=== PATIENT | male | born 1960 | race Caucasian/White ===

== ENCOUNTER 2019-07-23 08:45 | Outpatient (CLI) | payer MEDICAID ==
[2019-07-23 12:27] LABS: BASOPHILS # (AUTO) 0.1 10^3/uL (0.0-0.1); BASOPHILS % (AUTO) 0.8 %; EOSINOPHILS # (AUTO) 0.2 10^3/uL (0.0-0.7); EOSINOPHILS % (AUTO) 2.4 %; HGB - HEMOGLOBIN 15.6 g/dL (14.0-18.0); LYMPHOCYTES # (AUTO) 2.3 10^3/uL (1.5-3.5); LYMPHOCYTES % (AUTO) 23.2 %; MEAN CORPUSCULAR HEMOGLOBIN 30.4 pg (27.0-31.0); MEAN CORPUSCULAR HGB CONC 32.6 g/dL (32.0-36.0); MEAN CORPUSCULAR VOLUME 93.4 fL (80.0-94.0); MEAN PLATELET VOLUME 10.1 fL (7.4-11.4); MONOCYTES # (AUTO) 0.8 10^3/uL (0.0-1.0); MONOCYTES % (AUTO) 8.5 %; NEUTROPHILS # (AUTO) 6.3 10^3/uL (1.5-6.6); NEUTROPHILS % (AUTO) 64.2 %; PLT - PLATELET COUNT 267 10^3/uL (130-450); RED BLOOD COUNT 5.13 10^6/uL (4.70-6.10); RED CELL DISTRIBUTION WIDTH 13.5 % (12.0-15.0); WHITE BLOOD COUNT 9.8 x10^3/uL (4.8-10.8)
[2019-07-23 12:49] LABS: HB2 TOTAL 16.2 g/dL; HEMOGLOBIN A1C 0.64 g/dL; HEMOGLOBIN A1C % 5.8 % (4.6-6.2)
[2019-07-23 12:57] LABS: ALBUMIN 3.8 g/dL (3.2-5.5); ALBUMIN/GLOBULIN RATIO 1.2 (1.0-2.2); ALKALINE PHOSPHATASE 54 IU/L (42-121); ALT ALANINE AMINOTRANSFERASE 46 IU/L (10-60); AST ASPARTATE AMINOTRANSFERASE 20 IU/L (10-42); BILIRUBIN,TOTAL 0.7 mg/dL (0.2-1.0); BUN - BLOOD UREA NITROGEN 21 mg/dL (6-20); CARBON DIOXIDE - CO2 26 mmol/L (21-32); CHLORIDE 105 mmol/L (101-111); CHOL/HDL RATIO 6.3 (<5.0); CHOLESTEROL 232 mg/dL; GFR - MDRD 77 (>89); GLUCOSE 107 mg/dL (70-100); HDL CHOLESTEROL 37 mg/dL; LDL CHOLESTEROL,CALCULATED 124 mg/dL; LDL/HDL RATIO 3.4 (<3.6); SODIUM 140 mmol/L (135-145); TOTAL PROTEIN 7.1 g/dL (6.7-8.2); VLDL CHOLESTEROL 71 mg/dL
== END 2019-07-23 23:59 | disposition home or self-care (01) ==
LOC: LAB.N 08:45
PROVIDERS: ATTEND Physician Assistant Medical
DX: Z00.00 Encounter for general adult medical examination without abnormal findings (principal); I10 Essential (primary) hypertension; R73.9 Hyperglycemia, unspecified; E78.70 Disorder of bile acid and cholesterol metabolism, unspecified; M50.30 Other cervical disc degeneration, unspecified cervical region; F17.200 Nicotine dependence, unspecified, uncomplicated
CPT/HCPCS: 36415; 80050; 80061; 83036; 83721; 84153

== ENCOUNTER 2019-08-11 08:00 | Outpatient (CLI) | payer MEDICAID | END 2019-08-11 23:59 | disposition home or self-care (01) | LOC: LAB.R 08:00 | PROVIDERS: ATTEND Physician Assistant Medical | DX: Z01.812 Encounter for preprocedural laboratory examination (principal); K40.90 Unilateral inguinal hernia, without obstruction or gangrene, not specified as recurrent | CPT/HCPCS: 87640 ==

== ENCOUNTER 2019-08-18 09:17 | Day surgery (SDC) | payer MEDICAID ==
[~2019-08-18 09:17] MED LIST: CEFAZOLIN SODIUM IN 0.9 % NACL 0 GM/0 ML BAG IV ONE
[2019-08-18] MEDS ORDERED: BUPIVACAINE 0.5% PF 10 ML VIAL ONE (09:51)
[2019-08-18] MEDS ORDERED: LIDOCAINE 1%-EPI 1:100000 20 ML MDV ONE (09:52)
[2019-08-18] MEDS ORDERED: BUPIVACAINE 0.25% PF 30 ML VIAL ONE (09:52)
[2019-08-18] MEDS ORDERED: LACTATED RINGERS 1,000 ML IV ONE (10:00)
[2019-08-18] MEDS ORDERED: CEFAZOLIN SODIUM IN 0.9 % NACL 2 GM/100 ML BAG IV ONE (10:23)
--- NOTE | 2019-08-18 10:32 | ANESTHESIA ---
Pre-Anesthesia VS, & Labs - Diagnosis left inguinal hernia - Procedure laparoscopic left inguinal hernia repair Vital Signs: Temp Pulse Resp BP Pulse Ox 36.6 C 65 14 153/90 H 96 08/18/19 09:38 08/18/19 09:38 08/18/19 09:38 08/18/19 09:38 08/18/19 09:38 Height 6 ft Weight (kg) 110 kg - NPO >8 hours Home Medications and Allergies Home Medications: Ambulatory Orders Atorvastatin Calcium 20 mg PO QPM 08/11/19 Lisinopril [Zestril] 20 mg PO DAILY 08/11/19 Atorvastatin Calcium 20 mg PO QPM 08/11/19 Lisinopril [Zestril] 20 mg PO DAILY 08/11/19 Cardiotone 1 tab PO DAILY 08/17/19 Allergies/Adverse Reactions: Allergies Allergy/AdvReac Type Severity Reaction Status Date / Time ciprofloxacin [From Cipro] Allergy Intermediate Rash Verified 08/18/19 10:05 ciprofloxacin HCl * Allergy Intermediate Rash Verified 08/18/19 10:05 [From Cipro] sulfamethoxazole Allergy Intermediate Rash Verified 08/18/19 10:05 [From Bactrim] trimethoprim [From Bactrim] Allergy Intermediate Rash Verified 08/18/19 10:05 Anes History & Medical History - Anesthetic History Anesthesia Complications: reports: No previous complications - Medical History Cardiovascular: reports: Hypertension, High cholesterol, Deep vein thrombosis Pulmonary: reports: None Gastrointestinal: reports: Colon polyps Urinary: reports: None Musculoskeletal: reports: None Endocrine/Autoimmune: reports: None Skin: reports: None Smoking Status: Current every day smoker - Surgical History General: Colonoscopy, Other Orthopedic: Other Exam General: Alert Dental: Poor dentition (some missing) Mouth Opening: Greater than 4 Fingerbreadths Mallampati classification: II Thyromental Distance: greater than 6 cm Respiratory: Lungs clear Cardiovascular: Regular rate, Normal S1, Normal S2 Mental/Cognitive Status: Alert/Oriented X3 Plan Anesthesia Type: General Consent for Procedure(s) Verified and Reviewed: Yes Code Status: Attempt Resuscitation ASA classification: 2-Mild systemic disease Is this case an emergency?: No
[2019-08-18] MEDS ORDERED: HYDROmorphone 0.5 MG/0.5 ML SYRINGE IVP PRN (10:43)
[2019-08-18] MEDS ORDERED: ONDANSETRON 4 MG/2 ML VIAL IVP PRN (10:43)
[2019-08-18] MEDS ORDERED: oxyCODONE 5 MG TABLET PO PRN (10:43)
[2019-08-18] MEDS ORDERED: LIDOCAINE 1%-EPI 1:100000 20 ML MDV SUBQ ONE ×2 (11:21)
[2019-08-18] MEDS ORDERED: BUPIVACAINE 0.25% PF 30 ML VIAL SUBQ ONE ×2 (11:21)
--- NOTE | 2019-08-18 13:08 | OPERATIVE REPORT ---
Operative Report - General Procedure Date: 08/18/19 Pre-Op Diagnosis: Left Inguinal Hernia Procedure Performed: Laparoscopic Transabdominal Repair of Left Inguinal Hernia Post Op Diagnosis: same - Procedure Note Primary Surgeon: MD Yasmin Anesthesia Provider: Judith Garncia CRNA Anesthesia Technique: General ET tube Pathology: none Estimated Blood Loss (mL): 5 Indications: 59yo male with symptomatic left inguinal hernia. After discussion of risks, benefits, and alternatives, he had decided to proceed with laparoscopic hernia repair with mesh. Findings: indirect left inguinal hernia, cord lipoma; no right hernia Complications: none - Other Other Information/Narrative: The patient was taken to the operating room and placed on operating table in supine position. The abdomen was prepped and draped in sterile fashion and a time out is performed with the team present. Local anesthesia was used to infiltrate each port site as well as perform an ilioinguinal block. Using an 11 blade scalpel, a 12 mm supraumbilical incision was made and carried down to the fascia. The fascia was grasped and elevated and then incised. Lucrecia clamps were used to bluntly enter the abdomen. Stay sutures were placed with 0-vicryl. Pneumoperitoneum was introduced. Two secondary 5mm trocars were then placed under direct vision lateral to the bilateral rectus sheaths. Initial dissection began on the left side with an incision into the peritoneum which was carried laterally to the ASIS and medially to the pubic tubercle. The plane was developed until the hernia defect, epigastric vessels, cord structures, and pubic tubercle were exposed. The indirect defect was reduced. A large cord lipoma was encountered and also reduced. An extra-large left sided Bard contoured mesh was introduced and carefully placed to cover the defect and overlap the pubic tubercle as well as potential spaces for indirect and femoral defects. It is secured into place with tacks with attention to underlying vessel and nerve anatomy. The peritoneal flap is then closed and secured with tacks. The secondary trocars were removed under direct vision noting no bleeding. The abdomen was allowed to desufflate fully. The final trocar was removed. The midline fascia was closed using the stay sutures and the skin incisions were reapproximated using 4-0 Monocryl in an interrupted subcuticular fashion. The abdomen was cleaned and dried and Dermabond was placed over each of the incisions. The testicles were both identified in the scrotum. The patient was awakened and taken to the postanesthesia care unit in stable condition. All counts were correct at the end of the procedure.
[2019-08-18 14:29] VITALS: BP 136/84
== END 2019-08-18 09:18 | disposition home or self-care (01) ==
LOC: SDS 09:17
PROVIDERS: ATTEND Surgery
DX: K40.90 Unilateral inguinal hernia, without obstruction or gangrene, not specified as recurrent (principal); I10 Essential (primary) hypertension; E78.00 Pure hypercholesterolemia, unspecified; E66.9 Obesity, unspecified; F17.210 Nicotine dependence, cigarettes, uncomplicated; Z68.32 Body mass index [BMI] 32.0-32.9, adult; Z82.49 Family history of ischemic heart disease and other diseases of the circulatory system; Z86.718 Personal history of other venous thrombosis and embolism; Z88.1 Allergy status to other antibiotic agents; Z88.2 Allergy status to sulfonamides
CPT/HCPCS: 49650; C1781; J0690; J7120; 87081

== ENCOUNTER 2019-09-16 19:07 | Emergency (ER) | payer MEDICAID ==
[2019-09-16 19:16] VITALS: BP 171/94
--- NOTE | 2019-09-16 19:29 | ED Physician Documentation ---
History of Present Illness - Stated complaint Stated Complaint: HEAD LAC - Chief complaint Chief Complaint: Laceration - History obtained from History obtained from: Patient (Pt was hanging a cabinet and thought he got the screws in to secure the cabinet but when he let go to the cabinet fell onto his forehead. No loc. Presents w/ lac on forehead. No blood thinners.) Review of Systems Ten Systems: 10 systems reviewed and negative PD PAST MEDICAL HISTORY - Past Medical History Cardiovascular: Hypertension, High cholesterol, Deep vein thrombosis Respiratory: None Endocrine/Autoimmune: None GI: Colon polyps : None HEENT: Chronic vision loss Psych: None Musculoskeletal: None Derm: None - Past Surgical History Past Surgical History: Yes General: Colonoscopy, Other Ortho: Other - Present Medications Home Medications: Ambulatory Orders Medication Instructions Recorded Confirmed Atorvastatin Calcium 20 mg PO QPM 08/11/19 08/18/19 Lisinopril [Zestril] 20 mg PO DAILY 08/11/19 08/18/19 Cardiotone 1 tab PO DAILY 08/17/19 08/18/19 Docusate Sodium 100 mg PO BID #60 capsule 08/18/19 Ibuprofen 800 mg PO TID #60 tablet 08/18/19 oxyCODONE [Roxicodone] 5 mg PO Q6H PRN #20 tablet 08/18/19 - Allergies Allergies/Adverse Reactions: Allergies Allergy/AdvReac Type Severity Reaction Status Date / Time ciprofloxacin [From Cipro] Allergy Intermediate Rash Verified 09/16/19 19:16 ciprofloxacin HCl * Allergy Intermediate Rash Verified 09/16/19 19:16 [From Cipro] sulfamethoxazole Allergy Intermediate Rash Verified 09/16/19 19:16 [From Bactrim] trimethoprim [From Bactrim] Allergy Intermediate Rash Verified 09/16/19 19:16 - Social History Does the pt smoke?: Yes Smoking Status: Current every day smoker Does the pt drink ETOH?: Yes Does the pt have substance abuse?: Yes - Immunizations Immunizations are current?: No Immunizations: TDAP >10years/unknown - POLST Patient has POLST: No PD ED PE NORMAL - Vitals Vital signs reviewed: Yes - General General: Alert and oriented X 3, No acute distress, Well developed/nourished - HEENT HEENT: Other (3cm horizontal shallow lac on forehead just at hairline) - Neck Neck: Supple, no meningeal sign, No bony TTP, No adenopathy, No JVD - Derm Derm: Normal color, Warm and dry, No rash, Other (lac as above) Results - Vitals Vitals: Vital Signs - 24 hr 09/16/19 19:12 Temperature 36.8 C Heart Rate 83 Respiratory 17 Rate Blood Pressure 171/94 H O2 Saturation 93 Oxygen O2 Source Room air Procedures - Laceration (location) forehead Length in cm: 3 Wound type: Linear Wound Preparation: Hibiclens, Irrigated copiously NS Skin layer closure: Dermabond PD MEDICAL DECISION MAKING - ED course Complexity details: d/w patient ED course: Pt presented w/ shallow lac on the forehead. Cleaned and glued w/ good approximation of edges. Home wound care instructions provided. Departure - Departure Disposition: 01 Home, Self Care Clinical Impression: Laceration Condition: Good Instructions: ED Laceration Facial Skin Glue
== END 2019-09-16 19:53 | disposition home or self-care (01) ==
LOC: ED 19:07
DX: S01.81XA Laceration without foreign body of other part of head, initial encounter (principal); I10 Essential (primary) hypertension; F17.200 Nicotine dependence, unspecified, uncomplicated; W20.8XXA Other cause of strike by thrown, projected or falling object, initial encounter; W26.8XXA Contact with other sharp object(s), not elsewhere classified, initial encounter; Y93.H3 Activity, building and construction
CPT/HCPCS: 12013; 99281; 99282

== ENCOUNTER 2024-03-03 13:17 | Emergency (ER) | payer MEDICAID, OTHER ==
--- NOTE | 2024-03-03 13:38 | ED Physician Documentation ---
PD HPI OPHTHO - Stated complaint Stated Complaint: BLEACH IN EYES/FACE - Chief complaint Chief Complaint: Heent - History obtained from History obtained from: Patient - Additional information Additional information: He was doing some work with a bleach solution. Somebody got upset at him and it sounds like kick the bucket of bleach solution and it splashed him all over including the eyes and he does feel like there is a visual deficit related to same. He does wear glasses. No other injuries although he is covered in bleach. He did flush prior to arrival. PD PAST MEDICAL HISTORY - Past Medical History Past Medical History: Yes Cardiovascular: Hypertension, High cholesterol, Deep vein thrombosis Respiratory: None Endocrine/Autoimmune: None GI: Colon polyps : None HEENT: Chronic vision loss Psych: None Musculoskeletal: None Derm: None - Past Surgical History Past Surgical History: Yes General: Colonoscopy, Other Ortho: Other - Present Medications Home Medications: Ambulatory Orders Medication Instructions Recorded Confirmed Atorvastatin Calcium 20 mg PO QPM 08/11/19 08/18/19 Lisinopril [Zestril] 20 mg PO DAILY 08/11/19 08/18/19 Cardiotone 1 tab PO DAILY 08/17/19 08/18/19 Docusate Sodium 100 mg PO BID #60 capsule 08/18/19 Ibuprofen 800 mg PO TID #60 tablet 08/18/19 oxyCODONE [Roxicodone] 5 mg PO Q6H PRN #20 tablet 08/18/19 levoFLOXacin [Levofloxacin] 1 drops OP QID #5 ml 03/03/24 prednisoLONE 1% OPHTH DROPS [Pred 1 drops OPTH BID #5 ml 03/03/24 Forte 1% Ophth Drops] - Allergies Allergies/Adverse Reactions: Allergies Allergy/AdvReac Type Severity Reaction Status Date / Time ciprofloxacin [From Cipro] Allergy Intermediate Rash Verified 03/03/24 13:24 ciprofloxacin HCl * Allergy Intermediate Rash Verified 03/03/24 13:24 [From Cipro] sulfamethoxazole Allergy Intermediate Rash Verified 03/03/24 13:24 [From Bactrim] trimethoprim [From Bactrim] Allergy Intermediate Rash Verified 03/03/24 13:24 - Social History Does the pt smoke?: Yes Smoking Status: Current every day smoker Does the pt drink ETOH?: Yes Does the pt have substance abuse?: Yes - Immunizations Immunizations are current?: No Immunizations: TDAP >10years/unknown - POLST Patient has POLST: No PD ED PE NORMAL - Vitals Vital signs reviewed: Yes - General General: Alert and oriented X 3, No acute distress - HEENT HEENT: PERRL, EOMI Results - Vitals Vitals: Vital Signs - 24 hr 03/03/24 13:24 Temperature 36.5 C Heart Rate 98 Respiratory 16 Rate Blood Pressure 150/90 H O2 Saturation 96 Oxygen O2 Source Room air PD Medical Decision Making - ED course ED course: He was attended to immediately and I put some proparacaine in his eyes and installed Sean lenses with copious saline irrigation on both sides. After irrigation pH in both eyes was 7. He was sent for visual acuity. Visual acuity was modestly depressed but not alarmingly low. I discussed the case with Dr. Merrill who will see him tomorrow and recommends a fluoroquinolone eyedrop and prednisolone. Departure - Departure Disposition: 01 Home, Self Care Clinical Impression: Chemical conjunctivitis of right eye Condition: Good Record reviewed to determine appropriate education?: Yes Follow-Up: Yaw Merrill MD [Provider Admit Priv/Credential] - Tomorrow Prescriptions: levoFLOXacin [Levofloxacin] 1 drops OP QID #5 ml prednisoLONE 1% OPHTH DROPS [Pred Forte 1% Ophth Drops] 1 drops OPTH BID #5 ml Comments: I sent your prescriptions electronically to the [facility] in [place]. I discussed your case today with Dr. Merrill. Tomorrow his clinic will be in [place] call his office today to confirm the time as he wants to see you in [place] tomorrow. The office is in the same building as the [facility] in [place]. Return for new or worsening symptoms. Forms: PCP List
[2024-03-03 14:48] VITALS: BP 172/111; O2SAT 98
== END 2024-03-03 14:41 | disposition home or self-care (01) ==
LOC: ED 13:17
DX: T54.91XA Toxic effect of unspecified corrosive substance, accidental (unintentional), initial encounter (principal); H10.211 Acute toxic conjunctivitis, right eye; F17.200 Nicotine dependence, unspecified, uncomplicated
CPT/HCPCS: 99282; 99284